=== PATIENT | female | born 1990 | race Caucasian/White ===

== ENCOUNTER 2021-01-13 18:02 | Emergency (ER) | payer OTHER ==
[~2021-01-13 18:02] MED LIST: NYSTATIN SUSP1 ML/ML SSW
[2021-01-14] MEDS ORDERED: NORCO 5-325 TA1 EACH PO (01:54)
[2021-01-14] MEDS ORDERED: CYCLOBENZAPRINE10 MG PO (01:54)
[2021-01-14] MEDS ORDERED: IBUPROFEN800 MG PO (01:54)
== END 2021-01-14 02:15 | disposition home or self-care (01) ==
LOC: FER 18:02
DX: S51.811A Laceration without foreign body of right forearm, initial encounter (principal); S16.1XXA Strain of muscle, fascia and tendon at neck level, initial encounter; S39.012A Strain of muscle, fascia and tendon of lower back, initial encounter; F17.200 Nicotine dependence, unspecified, uncomplicated; V49.40XA Driver injured in collision with unspecified motor vehicles in traffic accident, initial encounter; Y92.410 Unspecified street and highway as the place of occurrence of the external cause
CPT/HCPCS: 71046; 72050